=== PATIENT | female | born 1950 | race Caucasian/White ===

== ENCOUNTER → 2020-02-03 | Outpatient (CLI) | payer MEDICARE, MEDICAID | LOC: RAD 10:06 | DX: M17.11 Unilateral primary osteoarthritis, right knee (principal) ==

== ENCOUNTER 2024-01-30 18:47 | Emergency (ER) | payer MEDICARE, MEDICAID ==
[~2024-01-30] VITALS: Ht 162.6 cm; Wt 99.1 kg
[2024-01-30] MEDS ORDERED: ACETAMINOPHEN-H1 TA2 PO (19:26)
[2024-01-30] MEDS ORDERED: RESTASIS 0.4 M0.4 M1 OU (19:26)
[2024-01-30] MEDS ORDERED: AMBIEN5 M1 PO (19:27)
[2024-01-30] MEDS ORDERED: BACLOFEN10 M1 PO (19:28)
[2024-01-30] MEDS ORDERED: TOPIRAMATE50 MG PO (19:28)
[2024-01-30] MEDS ORDERED: PANTOPRAZOLE SO20 M1 PO (19:30)
[2024-01-30] MEDS ORDERED: OXYBUTYNIN CHLO10 MG PO (19:30)
[2024-01-30] MEDS ORDERED: HYDROCHLOROTHIA1 T15 PO (19:31)
[2024-01-30] MEDS ORDERED: GABAPENTIN TAB600 MG PO (19:31)
[2024-01-30] MEDS ORDERED: ESCITALOPRAM5 MG PO (19:31)
[2024-01-30] MEDS ORDERED: SINGULAIR 110 MG/TAB PO (19:32)
[2024-01-30] MEDS ORDERED: FAMOTIDINE20 MG PO (19:32)
[2024-01-30] MEDS ORDERED: PRAVASTATIN SOD40 MG PO (19:34)
[2024-01-30] MEDS ORDERED: PHENTERMINE15 MG PO (19:35)
[2024-01-30] MEDS ORDERED: VITAMIN B122500 MC1 PO (19:36)
[2024-01-30] MEDS ORDERED: VITAMIN C500 M6 PO (19:36)
[2024-01-30] MEDS ORDERED: TOPAMAX50 M1 PO (19:36)
[2024-01-30] MEDS ORDERED: VITAMIN D3250 MC1 PO (19:37)
[2024-01-30] MEDS ORDERED: NATURAL SENNA8.6 MG PO (19:38)
[2024-01-30] MEDS ORDERED: COLACE CLEAR50 MG PO (19:38)
[2024-01-30] MEDS ORDERED: Ketorolac 30 MG/ML VIAL IM ONE (19:45)
[2024-01-30] MEDS ORDERED: Orphenadrine 60 MG/2ML AMP IV ONE (21:15)
[2024-01-30] MEDS ORDERED: HYDROmorphone 0.5 MG/0.5 ML SYRINGE IV ONE (21:15)
[2024-01-30 21:47] VITALS: BP 109/64
== END 2024-01-30 21:50 | disposition home or self-care (01) ==
LOC: ED 18:47
DX: M54.42 Lumbago with sciatica, left side (principal); Z87.891 Personal history of nicotine dependence
CPT/HCPCS: J1170; J1885; J2360

== ENCOUNTER 2024-03-06 10:46 | Emergency (ER) | payer MEDICARE, MEDICAID ==
[~2024-03-06] VITALS: Ht 162.6 cm; Wt 96.8 kg
[~2024-03-06 10:46] MED LIST: ACETAMINOPHEN-H1 TA2 PO; AMBIEN5 M1 PO; BACLOFEN10 M1 PO; COLACE CLEAR50 MG PO; ESCITALOPRAM5 MG PO; FAMOTIDINE20 MG PO; GABAPENTIN TAB600 MG PO; HYDROCHLOROTHIA1 T15 PO; NATURAL SENNA8.6 MG PO; OXYBUTYNIN CHLO10 MG PO; PANTOPRAZOLE SO20 M1 PO; PHENTERMINE15 MG PO; PRAVASTATIN SOD40 MG PO; RESTASIS 0.4 M0.4 M1 OU; SINGULAIR 110 MG/TAB PO; TOPAMAX50 M1 PO; TOPIRAMATE50 MG PO; VITAMIN B122500 MC1 PO; VITAMIN C500 M6 PO; VITAMIN D3250 MC1 PO
[2024-03-06] MEDS ORDERED: TRAMADOL 50 MG TAB PO (11:02)
[2024-03-06 11:46] LABS: PH-URINE 5.5 (5.0 - 8.0); URINE APPEARANCE CLOUDY (CLEAR); URINE BILIRUBIN NEGATIVE (NEGATIVE); URINE COLOR YELLOW (YELLOW); URINE GLUCOSE NEGATIVE (NEGATIVE); URINE KETONE NEGATIVE (NEGATIVE); URINE NITRATE NEGATIVE (NEGATIVE); URINE PROTEIN(semi-quant) 1+ (NEGATIVE)
[2024-03-06 11:47] LABS: URINE BLOOD 1+ (NEGATIVE); URINE LEUKOCYTE ESTERASE 1+ (NEGATIVE); URINE WBC >50 /hpf (0-3)
[2024-03-06 11:52] LABS: BASO # 0.04 K/mm3 (0.02-0.10); EOS # 0.31 K/mm3 (0.04-0.40); EOS % 4.4 % (1.0-5.0); HEMATOCRIT 40.2 % (37.0-47.0); HEMOGLOBIN 13.1 g/dL (12.5-16.0); LYMPH# 1.71 K/mm3 (1.50-4.00); MEAN CELL VOLUME 92 fl (78-100); MEAN CORPUSCULAR HEMOGLOBIN 30 pg (27-31); MEAN CORPUSCULAR HGB CONC 33 g/dL (33-37); MEAN PLATELET VOLUME 9.6 fl (7.4-10.4); NEU # 4.44 K/mm3 (1.40-6.50); PLATELET COUNT 238 K/mm3 (130-400); RED BLOOD COUNT 4.39 M/mm3 (4.10-5.30); RED CELL DISTRIBUTION WIDTH 12.3 % (11.5-14.5)
[2024-03-06 11:56] LABS: ALBUMIN 3.8 g/dL (3.4-4.8)
[2024-03-06 11:58] LABS: CALCIUM 8.9 mg/dL (8.3-10.5)
[2024-03-06 11:59] LABS: TOTAL PROTEIN 6.2 g/dL (6.2-8.1)
[2024-03-06 12:01] LABS: TOTAL BILIRUBIN 0.4 mg/dL (0.2-1.2)
[2024-03-06 12:21] LABS: D-DIMER 2.34 mg/L FEU (0.15-0.50)
[2024-03-06 12:57] VITALS: BP 117/67
[2024-03-06 12:59] LABS: URINE APPEARANCE SLIGHTLY CLOUDY (CLEAR); URINE COLOR YELLOW (YELLOW); URINE PROTEIN(semi-quant) 1+ (NEGATIVE)
[2024-03-06 13:00] LABS: URINE BILIRUBIN NEGATIVE (NEGATIVE); URINE BLOOD NEGATIVE (NEGATIVE); URINE GLUCOSE NEGATIVE (NEGATIVE); URINE KETONE NEGATIVE (NEGATIVE); URINE LEUKOCYTE ESTERASE 3+ (NEGATIVE); URINE NITRATE POSITIVE (NEGATIVE); URINE WBC >50 /hpf (0-3)
[2024-03-06 13:03] LABS: URINE MUCUS PRESENT (NOT PRESENT)
[2024-03-06] MEDS ORDERED: MACROBID 100 M100 MG PO (13:10)
== END 2024-03-06 12:59 | disposition home or self-care (01) ==
LOC: ED 10:46
PROVIDERS: Family Medicine
DX: M25.561 Pain in right knee (principal); R35.0 Frequency of micturition